=== PATIENT | female | born 1970 | race Two or more races ===

== ENCOUNTER → 2016-08-19 | Outpatient (CLI) | payer BC ==
--- NOTE | 2016-08-19 12:30 | REP ---
Chest x-ray: Two views. History: Unspecified chest pain. . Comparison study: September 26, 2012 . Findings: The lungs are well inflated and free of infiltrate. The pleural angles are sharp. The heart size is normal. Pulmonary vasculature is not increased. No significant bony abnormality is seen. Impression: Negative chest x-ray. Signed by Los Ramírez MD 08/19/2016 12:22 P
== END ==
LOC: M LRY 11:32
PROVIDERS: ATTEND Nurse Practitioner Family
DX: R07.9 Chest pain, unspecified (principal)

== ENCOUNTER 2016-10-23 15:35 | Emergency (ER) | payer BC ==
[~2016-10-23] VITALS: Ht 167.6 cm; Wt 76.2 kg
[2016-10-23] MEDS ORDERED: KETOROLAC 30 MG/ML VIAL (J1885) IV ONE (17:00)
[2016-10-23] MEDS ORDERED: METOCLOPRAMIDE INJ 10MG/2ML VIAL (J2765) IV ONE ×2 (17:00→18:15)
[2016-10-23] MEDS ORDERED: IMIT20SP (18:49)
[2016-10-23 19:01] VITALS: BP 147/84
== END 2016-10-23 19:04 | disposition home or self-care (01) ==
LOC: M ED 16:50
DX: G43.909 Migraine, unspecified, not intractable, without status migrainosus (principal)
CPT/HCPCS: 96374; 96375; 96376; 99283; J1885; J2765

== ENCOUNTER → 2017-05-15 | Outpatient (REF) | payer BC ==
[~2017-05-15] MED LIST: IMIT20SP
== END ==
LOC: M LAB REF 10:57
PROVIDERS: ATTEND Physician Assistant
DX: R30.0 Dysuria (principal)

== ENCOUNTER → 2018-08-31 | Outpatient (REF) | payer BC ==
[2018-09-04 14:21] LABS: HPV HYBRID CAPTURE II Negative (Negative)
== END ==
LOC: M LAB REF 17:58
PROVIDERS: ATTEND Obstetrics & Gynecology
DX: Z12.4 Encounter for screening for malignant neoplasm of cervix (principal)
CPT/HCPCS: 87624; G0123

== ENCOUNTER → 2018-09-08 | Outpatient (CLI) | payer BC ==
[2018-09-08 14:53] LABS: FREE T4 1.11 NG/DL (0.76-1.46); THYROID STIMULATING HORMONE 1.23 uIU/ML (0.358-3.740)
== END ==
LOC: M LAB 12:29
PROVIDERS: ATTEND Obstetrics & Gynecology
DX: N92.0 Excessive and frequent menstruation with regular cycle (principal)

== ENCOUNTER → 2018-09-27 | Outpatient (CLI) | payer BC ==
--- NOTE | 2018-09-27 15:57 | REP ---
RIGHT HIP, TWO VIEWS: There is no evidence of an acute fracture, dislocation or intrinsic bone disease. IMPRESSION: No fracture or dislocation. Electronically Signed by Rajiv Bergman MD 09/28/2018 08:33 P
== END ==
LOC: M LRY 15:10
PROVIDERS: ATTEND Nurse Practitioner Family
DX: M25.551 Pain in right hip (principal)

== ENCOUNTER → 2018-10-26 | Outpatient (CLI) | payer BC ==
--- NOTE | 2018-10-27 05:46 | REP ---
Clinical: Pelvic and perineal pain. Comparison: 05/30/2015 . Technique: Transabdominal pelvic ultrasound followed by transvaginal examination for better evaluation of the endometrium and adnexa with color Doppler evaluation of the ovaries. Findings: Bladder is unremarkable and measures 6.3 x 3.0 x 4.0 cm . Heterogeneous myomatous uterus measures 9.0 x 4.2 x 6.0 cm including 2.0 cm left fundal subserosal and 1.5 cm anterior submucosal/intramural fibroids. The endometrial complex measures 6.9 mm thickness. Bilateral ovaries are normal in appearance and vascularity without evidence for torsion. Right ovary measures 2.4 x 1.2 x 1.7 cm ; R I = 0.50 . Left ovary measures 2.4 x 1.9 x 1.6 cm ; R I = 0.50 . No pelvic fluid or adnexal mass lesion . Impression: 1. Heterogeneous myomatous uterus. 2. Normal bilateral ovaries. Electronically Signed by Lex Rodriguez MD 10/27/2018 05:37 A
== END ==
LOC: M RAD 16:52
PROVIDERS: ATTEND Obstetrics & Gynecology
DX: D25.9 Leiomyoma of uterus, unspecified (principal)

== ENCOUNTER 2019-06-06 10:58 | Day surgery (SDC) | payer OTHER ==
[2019-06-06] VITALS (7 sets, daily range): BP systolic 109–141; BP diastolic 64–93
[~2019-06-06] VITALS: Ht 170.2 cm; Wt 83.5 kg
[~2019-06-06 10:58] MED LIST changes: +ACETAMINOPHEN 1000MG 100ML IV BTL (OFIRMEV) (J0131 PER 10MG) As Ordered ONE; +AMIT25TA PO; +HYDROmorphone HCL 2 MG/ML 1ML VIAL (J1170) As Ordered ONE; +KETOROLAC 60 MG/2 ML VIAL (J1885) As Ordered ONE; +LIDOCAINE 2% INJ 100 MG/5 ML SDV (FOR ANES.) As Ordered ONE; +LR 1,000 ML IV ONE; +MIDAZOLAM INJ 2 MG/2 ML VIAL (J2250) As Ordered ONE; +ONDANSETRON 4MG/2ML VIAL (J2405) As Ordered ONE; +PROP80TA PO; +PROPOFOL 200 MG/20 ML VIAL As Ordered ONE; +ROCURONIUM BROMIDE 50 MG/5 ML VIAL As Ordered ONE; +SUGAMMADEX SODIUM 500 MG/5 ML VIAL (BRIDION) As Ordered ONE; +ceFAZolin SOD 2 GM in IV 1 EA IV ONE; +dexameTHASONE 4 MG/ML 1ML VIAL (J1100) As Ordered ONE; +fentaNYL 100 MCG/2 ML INJECTION (J3010) As Ordered ONE
[2019-06-06 11:31] LABS: HEMOGLOBIN 13.5 g/dl (12.0-15.5); MEAN CORPUSCULAR HEMOGLOBIN 31.5 pg (27.0-33.0); MEAN CORPUSCULAR HGB CONC 32.1 g/dl (32.0-36.5); MEAN CORPUSCULAR VOLUME 98.1 fl (80.0-96.0); PLATELET COUNT, AUTOMATED 342 10^3/uL (150-450); RED BLOOD COUNT 4.28 10^6/uL (4.00-5.40); WHITE BLOOD COUNT 5.7 10^3/uL (4.0-10.0)
[2019-06-06] MEDS ORDERED: BUPIVACAINE HCL 0.25% 30 ML VIAL As Ordered ONE (14:02)
[2019-06-06] MEDS ORDERED: GLYCOPYRROLATE INJ 0.2 MG/ML 2 ML VIAL As Ordered ONE (15:02)
[2019-06-06] MEDS ORDERED: LACRILUBE (AKWA TEARS) OPHTH OINT 3.5 GM As Ordered ONE (15:57)
[2019-06-06] MEDS ORDERED: fentaNYL 100 MCG/2 ML INJECTION (J3010) IV PRN (16:45)
[2019-06-06] MEDS ORDERED: ONDANSETRON 4MG/2ML VIAL (J2405) IV PRN (16:45)
[2019-06-06] MEDS ORDERED: LR 1,000 ML IV SCH ×2 (16:45→17:00)
[2019-06-06] MEDS ORDERED: PERCOCET 5MG/325MG TAB PO SCH (17:45)
[2019-06-06] MEDS ORDERED: PERCOCET 5MG/325MG TAB PO PRN (18:00)
[2019-06-06] MEDS ORDERED: MORPHINE 4 MG/ML 1ML VIAL/SYRINGE (J2270) IV PRN (18:00)
[2019-06-06] MEDS ORDERED: PROMETHAZINE INJ 25 MG/ML VIAL (J2550) IV PRN (18:00)
[2019-06-06] MEDS: PERCOCET 5MG/325MG TAB PO PRN (21:32)
[2019-06-07] MEDS: PERCOCET 5MG/325MG TAB PO PRN ×3 (01:34→09:45)
[2019-06-07 04:00] VITALS: BP 108/56
[2019-06-07 06:36] LABS: HEMATOCRIT 36.3 % (36.0-47.0); HEMOGLOBIN 11.9 g/dl (12.0-15.5); MEAN CORPUSCULAR HEMOGLOBIN 32.2 pg (27.0-33.0); MEAN CORPUSCULAR HGB CONC 32.8 g/dl (32.0-36.5); MEAN CORPUSCULAR VOLUME 98.1 fl (80.0-96.0); PLATELET COUNT, AUTOMATED 299 10^3/uL (150-450); WHITE BLOOD COUNT 7.1 10^3/uL (4.0-10.0)
[2019-06-07 07:50] VITALS: BP 114/70
--- NOTE | 2019-06-07 10:21 | ROOPDOC ---
[facility] Report Of Operation Report of Operation DATE OF PROCEDURE: 06/06/2019 PREOPERATIVE DIAGNOSIS: 1. Abnormal uterine bleeding. 2. Fibroid uterus POSTOPERATIVE DIAGNOSIS: 1. Abnormal uterine bleeding. 2. Fibroid uterus PROCEDURE PERFORMED: 1. Robotic-assisted laparoscopic hysterectomy with bilateral salpingo-oophorectomy. 2. Cystoscopy. SURGEON: Damián Alvarez MD BUS AIDE: Sharda Hensley NP ANESTHESIA: General endotracheal anesthesia. ESTIMATED BLOOD LOSS: 50 mL. INTRAVENOUS FLUIDS: 1500 mL lactated Ringer's solution. URINE OUTPUT: 300 mL. SPECIMEN: Cervix, uterus, bilateral fallopian tubes, and ovaries. PREOPERATIVE ANTIBIOTICS: 2 grams of Ancef. INFECTION CLASSIFICATION: 2. OPERATIVE FINDINGS: Fibroid uterus. Normal-appearing bilateral adnexa CYSTOSCOPIC FINDINGS: Revealed normal bladder mucosa. No foreign bodies were observed. Bilateral ureteral jets were observed during the cystoscopy. DESCRIPTION OF OPERATION: After informed consent was obtained and written consent was reviewed, the patient brought to the operating room where general endotracheal anesthesia was obtained. She was then placed in lithotomy position and was prepped and draped in a normal sterile fashion. A time out in the operating room was then performed identifying the patient, the procedure be performed, as well as, drug allergies. Speculum was then placed revealing the cervix. Anterior and posterior aspect of the cervix stitched with #0 Vicryl. The uterus then sounded to 7 cm. A [employer] uterine manipulator was advanced through cervical os for means to manipulate the uterus. Uterine balloon was then insufflated with 7 mL of air. The cervical cap was placed over the cervix and the vaginal sleeve was advanced down into the vagina. Instruments were then removed. A Hayes catheter was placed and set to gravity. Gloves were changed. Attention was turned to the patient's abdomen where a Veress needle was placed through the umbilicus. A pneumoperitoneum was then obtained with CO2 gas. The supraumbilical area was then infused 0.25% Marcaine and incision was made in this area. 8 mm trocar and sleeve was advanced through this incision. The laparoscope was then replaced revealing intra-abdominal placement. Three additional port sites were placed, one to the patient's right side of her umbilicus and two to the left side. Each one of these port sites were infused with 0.25% Marcaine Incision was made in each one of these areas and 8 mm trocars and sleeves were advanced through each one of these incisions under direct visualization. Next, da Israel was then advanced to the patient's table and was docked utilizing the camera arm and two operative arms. Using a vessel sealer, the infundibulopelvic ligament bilaterally was cauterized and ligated with good hemostasis noted. Further dissection using a vessel sealer was done along the round ligaments bilaterally. The anterior lip of the broad ligaments were then skeletonized along the bladder creating a bladder flap. The remainder of the broad and cardinal ligaments were then cauterized and ligated with good hemostasis noted. The uterine arteries were then skeletonized bilaterally and cauterized and ligated with good hemostasis noted. Vessel sealer was then replaced with the monopolar scissor. Anterior and posterior colpotomies were made. The uterus was then removed vaginally with good hemostasis noted. The vaginal cuff was then closed using a #2-0 V-Loc system in a running fashion. Surgical sites then inspected and found to be hemostatic. The abdomen was then irrigated and suctioned. Agustín was then applied over the surgical wallace. Next, cystoscopy was then performed. Hayes catheter was removed from the patient's bladder. The cystoscope was advanced transurethrally through the bladder. Cystoscopy was then performed revealing normal bladder mucosa, bilateral jets were observed and no foreign bodies. The bladder was then drained. Gloves were changed. Attention was turned to the patient's abdomen where all four skin incisions closed with #4-0 Monocryl was dressed with Dermabond. The patient was then taken out of lithotomy position, was awakened general anesthesia and taken to recovery in stable condition. Sharda Hensley, my surgical nurse practitioner, played an essential role during surgery. She assisted with port placement. Counts were correct. DAMIÁN ALVAREZ MD. Jun 07, 2019 10:21
== END 2019-06-07 10:30 | disposition home or self-care (01) ==
LOC: M SDC 10:58 → M PED 18:14 → M SDC 06-07 10:30
PROVIDERS: ATTEND Obstetrics & Gynecology
DX: D25.1 Intramural leiomyoma of uterus (principal); D25.2 Subserosal leiomyoma of uterus; N84.1 Polyp of cervix uteri; N80.0 Endometriosis of uterus; N93.9 Abnormal uterine and vaginal bleeding, unspecified; I10 Essential (primary) hypertension; F32.9 Major depressive disorder, single episode, unspecified; R07.9 Chest pain, unspecified; G43.909 Migraine, unspecified, not intractable, without status migrainosus; G47.33 Obstructive sleep apnea (adult) (pediatric); Z79.899 Other long term (current) drug therapy
CPT/HCPCS: 36415; 58571; 81025; 85027; 86850; 86900; 86901; 88307; J0131; J0690; J1100; J1170; J1885; J2250; J2405; J3010

== ENCOUNTER → 2019-06-22 | Outpatient (REF) | payer OTHER, BC ==
[~2019-06-22] MED LIST changes: -ACETAMINOPHEN 1000MG 100ML IV BTL (OFIRMEV) (J0131 PER 10MG) As Ordered ONE; -HYDROmorphone HCL 2 MG/ML 1ML VIAL (J1170) As Ordered ONE; -KETOROLAC 60 MG/2 ML VIAL (J1885) As Ordered ONE; -LIDOCAINE 2% INJ 100 MG/5 ML SDV (FOR ANES.) As Ordered ONE; -LR 1,000 ML IV ONE; -MIDAZOLAM INJ 2 MG/2 ML VIAL (J2250) As Ordered ONE; -ONDANSETRON 4MG/2ML VIAL (J2405) As Ordered ONE; -PROPOFOL 200 MG/20 ML VIAL As Ordered ONE; -ROCURONIUM BROMIDE 50 MG/5 ML VIAL As Ordered ONE; -SUGAMMADEX SODIUM 500 MG/5 ML VIAL (BRIDION) As Ordered ONE; -ceFAZolin SOD 2 GM in IV 1 EA IV ONE; -dexameTHASONE 4 MG/ML 1ML VIAL (J1100) As Ordered ONE; -fentaNYL 100 MCG/2 ML INJECTION (J3010) As Ordered ONE
[2019-06-22 17:23] LABS: AMORPHOUS SEDIMENT SMALL (NEGATIVE); APPEARANCE, URINE HAZY (CLEAR); BACTERIA, URINE AUTO NEGATIVE (NEGATIVE); BILIRUBIN, URINE AUTO NEGATIVE (NEGATIVE); BLOOD, URINE BLOOD 2+ (NEGATIVE); COLOR, URINE STRAW (YELLOW); GLUCOSE, URINE (UA) AUTO NEGATIVE (NEGATIVE); KETONE, URINE AUTO NEGATIVE (NEGATIVE); LEUKOCYTE ESTERASE, URINE AUTO NEGATIVE (NEGATIVE); NITRITE, URINE AUTO NEGATIVE (NEGATIVE); PROTEIN, URINE AUTO NEGATIVE (NEGATIVE); RBC, URINE AUTO 2 /HPF (0-3); SPECIFIC GRAVITY URINE AUTO 1.008 (1.002-1.035); SQUAMOUS EPITHELIAL CELL UR AU 0 /HPF (0-6); UROBILINOGEN, URINE AUTO 0.2 mg/dL (0.0-2.0); WBC, URINE AUTO 1 /HPF (0-3)
== END ==
LOC: M PLALAB 14:23
PROVIDERS: ATTEND Obstetrics & Gynecology
DX: R30.0 Dysuria (principal)

== ENCOUNTER → 2020-09-24 | Outpatient (CLI) | payer OTHER ==
[~2020-09-24] MED LIST changes: -AMIT25TA PO; +AMIT25TA17 PO
--- NOTE | 2020-09-24 09:25 | REPMRS ---
Patient History The patient states she has not had a clinical breast exam in over a year. Patient is postmenopausal and is nulliparous. Family history of breast cancer at age 60 in paternal aunt, colorectal cancer at age 68 in paternal uncle. No Hormone Replacement Therapy 3D TOMOSYNTHESIS WAS PERFORMED. [facility] lifetime risk for breast cancer is 17.9%. Volpara breast density a. Digital Woman Screen Mammo: September 24, 2020 - Exam #: [id number] Bilateral CC and MLO view(s) were taken. Technologist: RT Moreno Prior study comparison: November 15, 2018, bilateral digital mammo screening bilat, performed at [facility]. October 28, 2017, bilateral digital mammo screening bilat, performed at [facility]. FINDINGS: There are scattered fibroglandular densities. There has been no change in the appearance of the mammogram from the prior studies. There is a mild amount of residual fibroglandular tissue which is fairly symmetric. There is no interval development of dominant mass, architectural distortion, or clustered microcalcification suggestive of malignancy. Assessment: BI-RADS/ACR category 1 mammogram. Negative Mammogram. Recommendation Routine screening mammogram in 1 year (for women over age 40). This mammogram was interpreted with the aid of an FDA-approved computer-aided dectection system. Electronically Signed By: Rajiv Bergman MD 09/24/20 0924
== END ==
LOC: M WHC 08:07
PROVIDERS: ATTEND Family Medicine
DX: Z12.31 Encounter for screening mammogram for malignant neoplasm of breast (principal)

== ENCOUNTER → 2021-10-01 | Outpatient (CLI) | payer OTHER | LOC: M RAD 07:30 | PROVIDERS: ATTEND Family Medicine | DX: K76.0 Fatty (change of) liver, not elsewhere classified (principal); R10.32 Left lower quadrant pain ==

== ENCOUNTER → 2021-11-18 | Outpatient (CLI) | payer OTHER | LOC: M WHC 07:52 | PROVIDERS: ATTEND Family Medicine | DX: Z12.31 Encounter for screening mammogram for malignant neoplasm of breast (principal) ==

== ENCOUNTER → 2022-12-02 | Outpatient (CLI) | payer OTHER | LOC: M WHC 12:59 | PROVIDERS: ATTEND Nurse Practitioner Family | DX: Z12.31 Encounter for screening mammogram for malignant neoplasm of breast (principal) ==

== ENCOUNTER 2023-09-29 09:49 | Emergency (ER) | payer OTHER ==
[~2023-09-29] VITALS: Ht 167.6 cm; Wt 94.0 kg
[~2023-09-29 09:49] MED LIST changes: -AMIT25TA17 PO; +AMIT25TA19 PO
[2023-09-29] MEDS ORDERED: OSTE1TAB2 PO (09:56)
[2023-09-29] MEDS ORDERED: LISI10TA22 PO (09:56)
[2023-09-29 11:09] LABS: BASO % 0.7 % (0.0-1.0); EOS # 0.1 10^3/uL (0.0-0.5); EOS % 2.3 % (0.0-3.0); HEMATOCRIT 36.7 % (36.0-47.0); HEMOGLOBIN 12.6 g/dl (12.0-15.5); LYMPH % 35.1 % (24.0-44.0); MEAN CORPUSCULAR HEMOGLOBIN 32.6 pg (27.0-33.0); MEAN CORPUSCULAR HGB CONC 34.3 g/dl (32.0-36.5); MEAN CORPUSCULAR VOLUME 94.8 fl (80.0-96.0); MONO # 0.3 10^3/uL (0.0-0.8); MONO % 4.8 % (2.0-8.0); NEUTROPHILS # 3.2 10^3/uL (1.5-8.5); NEUTROPHILS % 56.9 % (36.0-66.0); PLATELET COUNT, AUTOMATED 310 10^3/uL (150-450); RED BLOOD COUNT 3.87 10^6/uL (4.00-5.40); WHITE BLOOD COUNT 5.6 10^3/uL (4.0-10.0)
[2023-09-29 11:50] LABS: CK-MB VALUE MASS < 1.0 NG/ML (<3.6)
[2023-09-29 11:52] LABS: CPK CREATINE PHOSPHOKINASE 97 U/L (34-145); MB/CK RELATIVE INDEX 1.03 (< OR =4)
[2023-09-29 12:28] LABS: CK-MB VALUE MASS < 1.0 NG/ML (<3.6)
[2023-09-29 12:29] LABS: BLOOD UREA NITROGEN 12 MG/DL (9-23); CALCIUM LEVEL 9.2 MG/DL (8.5-10.1); CARBON DIOXIDE LEVEL 28 MMOL/L (20-31); CHLORIDE LEVEL 106 MMOL/L (98-107); CREATININE FOR GFR 0.57 MG/DL (0.55-1.30); GLOMERULAR FILTRATION RATE > 60.0 (>51); GLUCOSE, FASTING 144 MG/DL (60-100); POTASSIUM SERUM 4.2 MMOL/L (3.5-5.1); SODIUM LEVEL 141 MMOL/L (136-145)
[2023-09-29 12:30] VITALS: TEMP 98.4
[2023-09-29 12:30] LABS: CPK CREATINE PHOSPHOKINASE 92 U/L (34-145); MB/CK RELATIVE INDEX 1.08 (< OR =4)
[2023-09-29] MEDS ORDERED: CO Q10CA PO (12:36)
[2023-09-29] MEDS ORDERED: D31000CA4 PO (12:36)
[2023-09-29] MEDS ORDERED: OMEG350C PO (12:36)
[2023-09-29] MEDS ORDERED: HOME MED LIST COMPLETE! XX SCH (12:40)
[2023-09-29 13:00] VITALS: BP 119/74; O2SAT 98
== END 2023-09-29 13:28 | disposition home or self-care (01) ==
LOC: M ED 09:49
DX: R07.9 Chest pain, unspecified (principal); M79.602 Pain in left arm; R00.0 Tachycardia, unspecified; I10 Essential (primary) hypertension; F32.A Depression, unspecified; F41.9 Anxiety disorder, unspecified; Z79.899 Other long term (current) drug therapy

== ENCOUNTER → 2024-01-05 | Outpatient (CLI) | payer OTHER ==
[~2024-01-05] MED LIST changes: +CO Q10CA PO; +D31000CA4 PO; +LISI10TA22 PO; +OMEG350C PO; +OSTE1TAB2 PO
== END ==
LOC: M WHC 11:58
PROVIDERS: ATTEND Nurse Practitioner Family
DX: Z12.31 Encounter for screening mammogram for malignant neoplasm of breast (principal)

== ENCOUNTER → 2024-01-25 | Outpatient (CLI) | payer OTHER | LOC: M WHC 13:26 | PROVIDERS: ATTEND Nurse Practitioner Family | DX: R92.2 Inconclusive mammogram (principal) | CPT/HCPCS: 77065; G0279 ==

== ENCOUNTER → 2024-08-14 | Outpatient (CLI) | payer OTHER | LOC: M WHC 10:24 | PROVIDERS: ATTEND Nurse Practitioner Family | DX: R92.8 Other abnormal and inconclusive findings on diagnostic imaging of breast (principal) | CPT/HCPCS: 77065; G0279 ==

== ENCOUNTER → 2024-10-08 | Outpatient (CLI) | payer BC, OTHER | LOC: M WUC 13:07 | PROVIDERS: ATTEND Nurse Practitioner Family | DX: M54.50 Low back pain, unspecified (principal) ==

== ENCOUNTER → 2025-01-25 | Outpatient (CLI) | payer OTHER | LOC: M WHC 10:04 | PROVIDERS: ATTEND Nurse Practitioner Family | DX: Z12.31 Encounter for screening mammogram for malignant neoplasm of breast (principal) ==

== ENCOUNTER 2025-04-25 11:08 | Emergency (ER) | payer OTHER ==
[~2025-04-25] VITALS: Ht 172.7 cm; Wt 94.1 kg
[2025-04-25 11:38] LABS: BASO # 0.0 10^3/uL (0.0-0.2); BASO % 0.7 % (0.0-1.0); EOS # 0.1 10^3/uL (0.0-0.5); EOS % 1.6 % (0.0-3.0); LYMPH # 2.5 10^3/uL (1.5-5.0); LYMPH % 41.7 % (24.0-44.0); MONO # 0.4 10^3/uL (0.0-0.8); MONO % 6.4 % (2.0-8.0); NEUTROPHILS # 3.0 10^3/uL (1.5-8.5); NEUTROPHILS % 49.4 % (36.0-66.0); PLATELET COUNT, AUTOMATED 294 10^3/uL (150-450)
[2025-04-25] MEDS ORDERED: QUET50TA4 PO (11:47)
[2025-04-25] MEDS ORDERED: ROSU40TA81 PO (11:47)
[2025-04-25] MEDS ORDERED: METF500T13 PO (11:47)
[2025-04-25 11:59] LABS: CALCIUM LEVEL 8.9 MG/DL (8.5-10.1); CARBON DIOXIDE LEVEL 28 MMOL/L (20-31); CHLORIDE LEVEL 104 MMOL/L (98-107); CREATININE FOR GFR 0.65 MG/DL (0.55-1.30); GLOMERULAR FILTRATION RATE > 90.0 (>51); POTASSIUM SERUM 4.2 MMOL/L (3.5-5.1); SODIUM LEVEL 140 MMOL/L (136-145)
[2025-04-25 12:01] LABS: CK-MB VALUE MASS < 1.0 NG/ML (<3.6)
[2025-04-25 12:05] LABS: CPK CREATINE PHOSPHOKINASE 108 U/L (34-145)
[2025-04-25 12:34] VITALS: BP 134/94
[2025-04-25] MEDS: CHLORTHALIDONE 25 MG TAB PO ONE (12:34)
[2025-04-25] MEDS ORDERED: LISI20TA33 PO ×2 (12:56→14:42)
[2025-04-25] MEDS ORDERED: XALA0.007 OU (12:58)
[2025-04-25] MEDS ORDERED: HOME MED LIST COMPLETE! XX SCH (13:00)
[2025-04-25] MEDS ORDERED: CHLO125TA PO (14:42)
[2025-04-25 14:49] VITALS: BP 126/81; TEMP 98.2; O2SAT 99
== END 2025-04-25 14:55 | disposition home or self-care (01) ==
LOC: M ED 11:08 → EDBD 11:08 → M ED 14:55
DX: I10 Essential (primary) hypertension (principal); F41.9 Anxiety disorder, unspecified; F32.A Depression, unspecified; Z79.899 Other long term (current) drug therapy; Z79.84 Long term (current) use of oral hypoglycemic drugs